=== PATIENT | female | born 1940 | race Caucasian/White ===

== ENCOUNTER → 2016-06-20 | Outpatient (CLI) | payer MEDICARE | LOC: RAD 06-13 09:00 | DX: R19.7 Diarrhea, unspecified (principal); K21.9 Gastro-esophageal reflux disease without esophagitis | CPT/HCPCS: Q9963 ==

== ENCOUNTER → 2016-08-02 | Outpatient (CLI) | payer MEDICARE | LOC: MAMO 09:51 | DX: Z12.31 Encounter for screening mammogram for malignant neoplasm of breast (principal); Z90.710 Acquired absence of both cervix and uterus | CPT/HCPCS: G0202 ==

== ENCOUNTER → 2016-08-10 | Outpatient (CLI) | payer MEDICARE | LOC: MAMO 08:50 | DX: R92.8 Other abnormal and inconclusive findings on diagnostic imaging of breast (principal); N63 Unspecified lump in breast; N60.01 Solitary cyst of right breast | CPT/HCPCS: 76641-RT; G0206 ==

== ENCOUNTER 2016-10-27 21:58 | Emergency (ER) | payer MEDICARE ==
[2016-10-27 23:34] LABS: RED BLOOD COUNT 3.98 M/UL (4.00-5.10); WHITE BLOOD COUNT 1.9 K/UL (4.5-11.0)
== END 2016-10-28 01:19 | disposition home or self-care (01) ==
LOC: ER1 21:58
PROVIDERS: Emergency Medicine
DX: E09.65 Drug or chemical induced diabetes mellitus with hyperglycemia (principal); T38.0X5A Adverse effect of glucocorticoids and synthetic analogues, initial encounter; E11.65 Type 2 diabetes mellitus with hyperglycemia; Z79.899 Other long term (current) drug therapy
CPT/HCPCS: 36415; 80048; 81001; 82009; 82962; 85025; 96372; 99284; J1815; J7030

== ENCOUNTER 2016-10-28 22:19 | Emergency (ER) | payer MEDICARE | END 2016-10-29 03:30 | disposition home or self-care (01) | LOC: ER1 22:19 | DX: E09.65 Drug or chemical induced diabetes mellitus with hyperglycemia (principal); T38.0X5A Adverse effect of glucocorticoids and synthetic analogues, initial encounter | CPT/HCPCS: 82962; 96372; 99283; J1815 ==